=== PATIENT | male | born 1935 | race Caucasian/White ===

== ENCOUNTER 2016-05-31 06:35 | Inpatient (IN) | payer OTHER ==
[2016-05-31 07:18] LABS: MANUAL DIFF NEEDED? NO
[2016-05-31 07:26] LABS: URINE MICRO REVIEW NEEDED? NO; URINE SOURCE VOIDED
[2016-05-31 07:27] LABS: BASO% 0.3 % (0.0-0.8); EOS# 0.45 X1000 (0.0-0.7); EOS% 5.1 % (0.0-10.0); HEMATOCRIT 39.3 % (42.0-52.0); HEMOGLOBIN 13.4 g/dL (14.0-18.0); IMM GRAN# 0.12 X1000 (0.0-0.04); IMM GRAN% 1.3 % (0.0-0.5); LYMPH% 6.7 % (20.5-51.1); MCH 31.5 PG (27-31); MCHC 34.1 g/dL (33-37); MCV 92.3 FL (81-99); MONO# 1.27 X1000 (0.11-0.59); MONO% 14.3 % (1.7-9.3); MPV 9.8 FL (7.4-10.4); NEUT% 72.3 % (42.2-75.2); PLT 282 X1000 (130-400); RBC 4.26 XMIL (4.7-6.1)
[2016-05-31 07:32] LABS: UR EPITHELIAL CELLS <10 /HPF (<10); URINE BACTERIA NEGATIVE /HPF; URINE RBC TNTC /HPF (<10); URINE WBC <10 /HPF (<10)
[2016-05-31 07:43] LABS: BILIRUBIN URINE SMALL (NEGATIVE); BLOOD URINE MODERATE (NEGATIVE); COLOR BROWN; GLUCOSE URINE NEGATIVE (NEGATIVE); LEUKOCYTES URINE NEGATIVE (NEGATIVE); NITRITE URINE POSITIVE (NEGATIVE); PROTEIN URINE TRACE mg/dL (NEGATIVE); SP GRAVITY URINE 1.016; TURBIDITY URINE HAZY (CLEAR); UROBILINOGEN URINE 3 mg/dL (NORMAL)
[2016-05-31 07:54] LABS: ALBUMIN 3.3 g/dL (3.5-5.0); CALCIUM 9.3 mg/dL (8.8-10.2); POTASSIUM 3.7 mmol/L (3.5-5.1); TOTAL BILIRUBIN 0.6 mg/dL (0.20-1.00); TOTAL PROTEIN 6.5 g/dL (6.3-8.3)
[2016-05-31] MEDS ORDERED: MORPHINE IV PRN (09:15)
[2016-05-31] MEDS ORDERED: TYLENOL PO PRN (09:15)
[2016-05-31] MEDS ORDERED: ZOFRAN IV PRN (09:15)
[2016-05-31] MEDS ORDERED: LEVAQUIN 500 MG/D5W 100 ML IV SCH (10:00)
[2016-05-31] MEDS: NS 1,000 ML IV SCH (10:10)
[2016-05-31 10:28] LABS: AMYLASE 24 U/L (20-200); LIPASE 28 U/L (13-60)
--- NOTE | 2016-05-31 11:58 | HISTORY AND PHYSICAL ---
PRIMARY CARE PHYSICIAN: Dr. Rodney Barriga. CHIEF COMPLAINT: Intractable nausea, intractable abdominal pain. HISTORY OF PRESENT ILLNESS: An 81-year-old, white male with past medical history significant for benign prostatic hypertrophy, atrial fibrillation, non allergic rhinitis, osteoarthritis, hypertension, and chronic kidney disease presents for evaluation of above-mentioned symptoms. Current history of present illness began approximately 6 weeks ago. At that time, patient underwent a right total knee arthroplasty. No significant postoperative complications were noted. The patient and his vacationed in [place] last week. On Monday, patient states he ate an egg sandwich and soon thereafter developed nausea. Over the course of the next several days, patient developed fever, urinary retention, and constipation. Abdominal discomfort soon followed. The patient took a Pyridium with some improvement. The patient and his traveled home and yesterday was seen by Dr. Trevino. The patient was diagnosed with prostatitis. He was started on ciprofloxacin therapy. Overnight, patient's overall condition deteriorated. The patient complained of nausea, vomiting, and progressive abdominal discomfort. He noted chills, but no fevers. The patient's noted some alteration of his mental status. Because of his progressive symptoms, patient contacted me and patient was referred to the emergency department immediately. Upon arrival, laboratory data was drawn. Patient was noted to have residual urinary tract infection. He was also noted to have acute on chronic kidney dysfunction. The patient will be admitted to the hospital for full evaluation and management of presumed prostatitis with associated urinary retention and acute on chronic kidney disease. PAST MEDICAL HISTORY: 1. History of prostatitis in early . 2. Benign prostatic hypertrophy. 3. Atrial fibrillation. 4. Non allergic rhinitis. 5. Osteoarthritis. 6. Hypertension. 7. Chronic kidney disease with baseline creatinine of 1.5. 8. History of bilateral rotator cuff repairs. CURRENT MEDICATIONS: 1. Cialis 5 mg daily. 2. Toprol-XL 25 mg daily. 3. Xarelto 20 mg every morning. 4. Aspirin 81 mg daily. 5. Hyzaar 100/25 1/2 tablet daily. 6. Co-Q10 100 mg daily. ALLERGIES: Patient answered no known drug allergies. SOCIAL HISTORY: Patient is a retired orthopedic surgeon. He exercises routinely. He smoked less than 1 pack per day for 30 years. He stopped in 1982. He drinks approximately 1-2 glasses of wine per day. He denies illicit drug use. FAMILY HISTORY: Patient's mother passed at age 60 secondary to complications of ALS. Patient's father passed at age 87 secondary to complications of urinary sepsis. He had a history of Alzheimer's dementia. REVIEW OF SYSTEMS: A 12 point review of systems was performed. Pertinent positives and negatives noted in history of present illness. PHYSICAL EXAMINATION: VITAL SIGNS: Temperature 97.2 degrees, heart rate 83, respirations 16, blood pressure 131/79. GENERAL: Well nourished well developed, no acute distress. HEENT: Normocephalic, atraumatic. Pupils equal, round, reactive to light. Extraocular muscles intact. Sclerae anicteric. [place] conjunctivae. Oral and nasopharynx clear without exudate. NECK: Supple. No lymphadenopathy. No thyromegaly. No bruits auscultated. CARDIOVASCULAR: Irregularly irregular. No significant murmurs, rubs, or gallops. PULMONARY: Clear to auscultation bilaterally. ABDOMEN: Diffusely tender in the right lower quadrant, suprapubic, and left lower quadrant. Guarding was present, but no rebound was identified. Decreased bowel sounds. EXTREMITIES: Moves all extremities well. No significant clubbing, cyanosis, or edema. NEUROLOGIC: Cranial nerves 2 through 12 grossly intact. Motor and sensory grossly intact. PSYCHOLOGIC: Examination is appropriate. LABORATORY DATA: White blood cell count 8.91, hemoglobin 13.4, hematocrit 39.3, platelet counts 282,000. Sodium 134, potassium 3.7, chloride 94, bicarb 22, BUN 31, creatinine 1.8, glucose 113, calcium 9.3, total bilirubin 0.60, total protein 6.5, albumin 3.3, alkaline phosphatase 195, AST 21, ALT 26. Urinalysis reveals trace protein, moderate blood, positive nitrite, negative leukocytes. CT scan of the abdomen and pelvis is pending. ASSESSMENT AND PLAN: 81-year-old white male with a past medical history as noted presents for evaluation of intractable abdominal pain, nausea, and vomiting. The patient was diagnosed with prostatitis yesterday. He appears to have a partially treated urinary tract infection/prostatitis. In addition, patient's postvoid residual was greater than 700 favoring the diagnosis of acute urinary retention in the setting of a prostatitis. Additional symptoms include constipation as well as an atypical abdominal examination. Patient was admitted to the hospital for full evaluation and management of each of these conditions. 1. Admit to [address] [place] [address]. 2. Acute prostatitis - I suspect this is the etiology of his overall symptoms. We will transition patient to IV Levaquin therapy. We will send patient's urine and blood for culture. We will start Flomax twice daily. We will treat patient's urinary retention as described below. 3. Urinary retention - as above, patient's postvoid residual was greater than 700. We will place a Fisher catheter. As above, we will start Flomax therapy. We will consult Dr. Trevino. I suspect this is an acute episode of urinary retention secondary to prostatitis in the setting of benign prostatic hypertrophy. We will need to determine if further intervention is warranted after his prostatitis has resolved. 4. Constipation - this also is exacerbating his condition. We will check a CT scan with oral contrast. We will start patient on MiraLAX therapy. Again this will be followed. 5. Abdominal discomfort - patient's examination is abnormal. I suspect this is secondary to his urinary retention and prostatitis. I would, however, like to rule out additional abdominal pathology. We will refer patient for a CT scan of the abdomen and pelvis. We will use only oral contrast in the setting of his acute on chronic kidney disease. We will follow this as well. 6. Acute on chronic renal failure - patient's baseline creatinine is 1.3. Creatinine today is up to 1.8. We will start patient on IV hydration. We will treat patient's urinary symptoms as noted. 7. Atrial fibrillation - we will continue Toprol-XL. We will hold Xarelto for now however we will re-initiate therapy once abdomen is deemed nonsurgical. We will follow this as well. 8. Fluid, electrolyte, nutrition. We will monitor electrolytes. Normal saline at 75 mL an hour. NPO for now. 9. Prophylaxis. Will resume Xarelto as described above.
--- NOTE | 2016-05-31 13:15 | Diag Imaging Result Document ---
PROCEDURE NAME: CT ABD/PELVIS ORAL CONTR ONLY - 05/31/2016 CT ABDOMEN AND PELVIS WITH ORAL CONTRAST ONLY: FINDINGS: Normal spleen and adrenal glands. No inflammation about the pancreas or gallbladder. No focal hepatic abnormality identified on these noncontrasted images. There are multiple bilateral nonobstructing renal stones in addition to bilateral renal cysts. The largest cyst on the left measures 4.6 cm. The largest cyst on the right measures 5.1 cm. The renal stones range in size from 2 mm to 6 mm. No ureteral stones. Mild perinephric inflammation about each kidney. Moderate atherosclerosis. No aneurysmal dilatation to the aorta. No bowel obstruction. There are many scattered diverticula. The prostate measures 5.6 cm in transverse dimension. There is a Fisher catheter within the urinary bladder. Prominent degenerative changes in the mid and lower lumbar spine. No compressed vertebra. IMPRESSION: 1. Bilateral nonobstructing renal stones with scattered renal cysts. No ureteral stones. 2. I believe there is mild fatty infiltration of liver. 3. Diverticulosis. 4. Prominent prostate. 5. Prominent degenerative spine changes. A preliminary report was given at 12:56 p.m.
[2016-05-31] MEDS: TOPROL XL PO SCH (14:21)
[2016-05-31] MEDS: FLOMAX PO SCH ×2 (14:21→20:02)
[2016-05-31] MEDS: PATIENT'S OWN MED PO SCH (14:22)
[2016-05-31] MEDS: ASPIRIN EC PO SCH (14:22)
[2016-05-31] MEDS: MIRALAX PO SCH (14:23)
[2016-06-01] MEDS: NS 1,000 ML IV SCH (01:27)
[2016-06-01 06:31] LABS: MANUAL DIFF NEEDED? NO
[2016-06-01 06:46] LABS: BASO% 0.5 % (0.0-0.8); EOS# 0.71 X1000 (0.0-0.7); EOS% 12.4 % (0.0-10.0); HEMATOCRIT 37.5 % (42.0-52.0); HEMOGLOBIN 12.3 g/dL (14.0-18.0); IMM GRAN# 0.13 X1000 (0.0-0.04); IMM GRAN% 2.3 % (0.0-0.5); LYMPH# 0.87 X1000 (1.2-3.4); LYMPH% 15.2 % (20.5-51.1); MCH 30.9 PG (27-31); MCHC 32.8 g/dL (33-37); MCV 94.2 FL (81-99); MONO# 0.73 X1000 (0.11-0.59); MONO% 12.8 % (1.7-9.3); MPV 9.5 FL (7.4-10.4); NEUT% 56.8 % (42.2-75.2); PLT 238 X1000 (130-400); RBC 3.98 XMIL (4.7-6.1)
[2016-06-01 07:00] LABS: ALBUMIN 2.7 g/dL (3.5-5.0); CALCIUM 8.5 mg/dL (8.8-10.2); POTASSIUM 4.1 mmol/L (3.5-5.1); TOTAL BILIRUBIN 0.35 mg/dL (0.20-1.00); TOTAL PROTEIN 5.5 g/dL (6.3-8.3)
[2016-06-01 07:21] VITALS: BP 125/74
[2016-06-01] MEDS: MIRALAX PO SCH ×2 (09:29→09:31)
[2016-06-01] MEDS: FLOMAX PO SCH (09:30)
[2016-06-01] MEDS: TOPROL XL PO SCH (09:30)
[2016-06-01] MEDS: ASPIRIN EC PO SCH (09:30)
[2016-06-01] MEDS: PATIENT'S OWN MED PO SCH (09:31)
--- NOTE | 2016-06-02 05:51 | DISCHARGE SUMMARY ---
ADMISSION DATE: 05/31/2016 DISCHARGE DATE: 06/01/2016 ADMISSION DIAGNOSES: 1. Intractable nausea. 2. Intractable abdominal pain. DISCHARGE DIAGNOSES: 1. Acute prostatitis, treated. 2. Urinary retention secondary to acute prostatitis in the setting of benign prostatic hypertrophy. 3. Constipation, improved. 4. Abdominal discomfort, resolved. 5. Acute on chronic renal failure, improved CONSULTATION: Dr. Trevino with Urology was consulted for further evaluation and management of urinary retention. PROCEDURE: A CT scan of the abdomen and pelvis was performed on 05/31/2016 which revealed bilateral nonobstructing renal stones with scattered renal cysts. No ureteral stones. Mild fatty infiltration of the liver. Diverticulosis. Prominent prostate. Prominent degenerative spine changes. HISTORY AND PHYSICAL EXAMINATION: See admit note. PHYSICAL EXAMINATION PRIOR TO DISCHARGE: Vital Signs: Temperature 98.3 degrees, heart rate 87, respirations 16, blood pressure is 125/74. General: Well nourished, well developed in no acute distress. Cardiovascular: Irregularly irregular. No significant murmurs, rubs or gallops. Pulmonary: Clear to auscultation bilaterally. Abdomen: Soft, nontender, and nondistended. Positive bowel sounds. Extremities: Moves all extremities well. No significant clubbing or cyanosis. Patient has 2+ lower extremity edema bilaterally. Dermatologic: Reveals no evidence of rash. LABORATORY DATA: White blood cell count 5.72, hemoglobin 12.3, hematocrit 37.5, platelet count 238,000. Sodium 140, potassium 4.1, chloride 102, bicarb 25, BUN 24, creatinine 1.3, glucose 134, calcium 8.5, total bilirubin 0.35, total protein 5.5, albumin 2.7, alkaline phosphatase 143, AST 24, and ALT 21. HOSPITAL COURSE: Patient was admitted as per history and physical exam. HOSPITAL COURSE PER CONDITION IS FOLLOWS: 1. Acute prostatitis-Upon admission, patient was being treated for acute prostatitis. Repeat urinalysis and urine culture was drawn. As urinalysis suggested partial treatment, patient will be continued on levofloxacin therapy for additional 10 days. We will follow up on culture data. 2. Urinary retention-upon admission, patient was noted to have significant urinary retention. A catheter was placed and 1700 mL of urine was removed. Flomax therapy was initiated twice daily. Dr. Treivno was consulted. The patient will be discharged home with a Fisher catheter in place. We will plan to attempt a voiding trial next Monday with Dr. Trevino. 3. Constipation-Patient will be discharged home on MiraLAX to be used daily. This will be followed. 4. Abdominal discomfort-The patient was noted to have considerable abdominal discomfort upon admission. This ultimately was secondary to his urinary retention. With Fisher catheter placement, his symptoms improved. 5. Acute on chronic renal failure-patient's creatinine upon admission was 1.8. With hydration, this returned to baseline of 1.3. 6. Atrial fibrillation-patient was continued on Toprol-XL while hospitalized. On the day of discharge, patient's Xarelto was resumed. DISCHARGE CONDITION: Good. DISPOSITION: Discharge to home. MEDICATIONS: 1. Acetaminophen 650 mg every 4 hours as needed. 2. Levofloxacin 500 mg daily for 10 days. 3. Losartan/hydrochlorothiazide 100/25 1/2 tablet daily. 4. Polyethylene glycol 17 g in 8 ounces of juice daily as needed for constipation. 5. Tamsulosin 0.4 mg twice daily. 6. Aspirin 81 mg daily. 7. Fluticasone nasal spray daily. 8. Brio inhalation daily as needed. 9. Metoprolol ER 25 mg daily. 10. Xarelto 20 mg daily. 11. Cialis 5 mg daily. FOLLOWUP: The patient to follow with me in approximately 1-2 weeks. The patient to follow up with Dr. Trevino as arranged.
--- NOTE | 2016-06-05 22:53 | CONSULTATION ---
DATE OF CONSULTATION: 05/31/2016 CONSULTING PHYSICIAN: Dr. Rodney Barriga. CONSULTATION FOR: Acute urinary retention. Nausea vomiting. History BPH. 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 He was contacted by me while out of the country secondary to worsening of lower urinary tract symptoms consistent with prostatitis. He waited until coming back to the [place] which was several days after being contacted by me and was initiated on ciprofloxacin which he had at home. I have also called in Flomax. He reports feeling worse and he was seen by me on 05/30/2016. At that time we elected to continue with medical management increasing the Flomax. He reports having felt worse and contacted Dr. Barriga who had admitted him. His creatinine on the time of admission was 1.8. Upon review of records it was 1.7 in May 2015, it was 1.1 in May 2014. His white cell count at the time of admission was 9. He has had a history of elevated PSA all the way up to 11. That was attributed to prostatitis and repeat PSA was 5.3 followed by PSA of 5.51 in January 2016. He has used Flomax as well as a Cialis daily in the past. Upon further history he reports he had not used Flomax as prescribed on daily basis. He reportedly had significantly elevated postvoid residual with approximately 800 mL and Fisher catheter was placed at the time of admission. He denies gross hematuria, flank pain, fevers or chills currently. PAST MEDICAL HISTORY: 1. BPH . 2. Chronic prostatitis. 3. Atrial fibrillation. 4. Hypertension. Osteoarthritis. PAST SURGICAL HISTORY: Rotator cuff repair, appendectomy, percutaneous coronary intervention and cataract excision. ALLERGIES: No known drug allergies. MEDICATIONS: Toprol, Xarelto, aspirin, Hyzaar, Cialis, CoQ10. SOCIAL HISTORY: He is a retired physician, he is a former smoker, occasional alcohol, no illicit drugs. FAMILY HISTORY: Negative for malignancies. REVIEW OF SYSTEMS: Reviewed and 12 systems negative with exception the HPI. PHYSICAL EXAMINATION: Vital signs: T 97.8, P 74, BP 93/56. General: Pleasant male no acute distress. HEENT: Normocephalic, atraumatic. Cardiovascular: Regular rate. Pulmonary: Bilateral breath sounds. Abdomen: Nontender, nondistended. : Normal phallus, normal meatus. Fisher catheter place draining straw-colored urine. Rectal: Digital rectal examination deferred as 1 was done on 05/30/2016. Lymphatic: No groin lymphadenopathy. DERMATOLOGIC: No obvious skin rashes .Neurologic: Alert and oriented x3. Psychiatric: Appropriate mood and affect. PERTINENT LABS: Per HPI. PERTINENT IMAGES: He did have a CT abdomen and pelvis ordered on 05/31/2016 which revealed bilateral renal stones, bilateral renal cysts, prominent prostate with respect to system. ASSESSMENT/PLAN: 81-year-old male with long-standing benign prostatic hypertrophy who has chronic prostatitis and recently had acute exacerbation. This is likely the source of his urinary retention. I have had extensive conversation with the patient regarding medical and surgical management of benign prostatic hypertrophy, chronic prostatitis and now retention. He feels strongly about being on Flomax 0.4 mg twice a day as has he has not done that routinely in the past. We discussed that we may add finasteride to his regimen. We also discussed that if he does not pass voiding trial or continues to have prostatitis frequently we will may need to consider transurethral resection of the prostate versus simple prostatectomy. I have answered his questions to his satisfaction. PLAN: 1. Agree with discharging him in the future with Fisher catheter. I have discussed with the patient intermittent self-catheterization and he declined. 2. Flomax 0.4 mg b.i.d. 3. I will see him in 6-7 days for voiding trial. Thank you for consultation.
== END 2016-06-01 10:42 | disposition home or self-care (01) | DRG 683 ==
LOC: ED 06:35 → EDIPHOLD 10:56 → 4N 16:07
PROVIDERS: ADMIT Internal Medicine; ATTEND Internal Medicine
DX: N17.9 Acute kidney failure, unspecified (principal); N41.0 Acute prostatitis; N40.1 Benign prostatic hyperplasia with lower urinary tract symptoms; R33.8 Other retention of urine; I48.91 Unspecified atrial fibrillation; I12.9 Hypertensive chronic kidney disease with stage 1 through stage 4 chronic kidney disease, or unspecified chronic kidney disease; N18.9 Chronic kidney disease, unspecified; J31.0 Chronic rhinitis; K59.00 Constipation, unspecified; M19.90 Unspecified osteoarthritis, unspecified site; Z79.899 Other long term (current) drug therapy; Z79.02 Long term (current) use of antithrombotics/antiplatelets; Z87.891 Personal history of nicotine dependence; Z79.82 Long term (current) use of aspirin
CPT/HCPCS: 51702; 51798; 74176; 80053; 81001; 82150; 83690; 85025; 87040; 87088; 94761; 94799; 96365; J7030

== ENCOUNTER 2018-07-22 19:39 | Inpatient (IN) ==
[2018-07-22] MEDS ORDERED: SODIUM CHLORIDE 0.9% INJ ONE (19:52)
[2018-07-22] MEDS ORDERED: PROTONIX IV ONE (19:52)
[2018-07-22] MEDS ORDERED: NS 1,000 ML IV ONE ×2 (19:58→21:38)
[2018-07-22 20:42] LABS: BASO# 0.01 X1000 (0.0-0.2); BASO% 0.1 % (0.0-0.8); EOS% 0.7 % (0.0-10.0); HEMATOCRIT 41.5 % (42.0-52.0); HEMOGLOBIN 13.9 g/dL (14.0-18.0); IMM GRAN# 0.06 X1000 (0.0-0.04); IMM GRAN% 0.4 % (0.0-0.5); LYMPH# 0.48 X1000 (1.2-3.4); LYMPH% 3.2 % (20.5-51.1); MCH 28.4 PG (27-31); MCHC 33.5 g/dL (33-37); MCV 84.9 FL (81-99); MONO# 1.13 X1000 (0.11-0.59); MONO% 7.5 % (1.7-9.3); MPV 10.6 FL (7.4-10.4); NEUT# 13.26 X1000 (1.4-6.5); NEUT% 88.1 % (42.2-75.2); PLT 182 X1000 (130-400); RBC 4.89 XMIL (4.7-6.1); RDW 15.9 % (11.5-14.5); WBC 15.04 X1000 (4.8-10.8)
[2018-07-22 20:46] LABS: INR 1.55; PROTIME 19.7 Seconds (11.0-16.0)
[2018-07-22 20:47] LABS: PTT 35.1 Seconds (22.3-41.8)
[2018-07-22 21:08] LABS: ALB/GLOB RATIO 1.2; ALBUMIN 3.3 g/dL (3.5-5.0); CALCIUM 8.4 mg/dL (8.8-10.2); CREATININE 1.6 mg/dL (0.7-1.2); POTASSIUM 3.5 mmol/L (3.5-5.1); TOTAL BILIRUBIN 1.34 mg/dL (0.20-1.00); TOTAL PROTEIN 6.1 g/dL (6.3-8.3)
[2018-07-22] MEDS ORDERED: LEVOPHED 8 MG in D5 1/2 NS 250 ML IV SCH (21:45)
[2018-07-22] MEDS ORDERED: LEVAQUIN 500 MG/D5W 500 MG/100 ML IVPB IV ONE (23:24)
--- NOTE | 2018-07-22 23:42 | PROVIDER DOCUMENTATION ---
This chart was entered by Sarah Almendarez Scribe, acting as scribe for John Levi MD. HPI-Abdominal Pain/GI Problem - General Chief Complaint: Vomiting Blood Stated Complaint: VOMITING BLOOD, BLOOD PRESSURE IS LOW Time Seen by Provider: 07/22/18 19:51 Source: patient Allergies/Adverse Reactions: Patient Allergies Allergy/AdvReac Type Severity Reaction Status Date / Time No Known Allergies Allergy Verified 07/22/18 19:51 Home Medications: Home Medication List Medication Instructions Recorded Confirmed Last Taken Type Aspirin [Aspirin EC] 81 mg PO DAILY 02/25/13 05/31/16 05/30/16 06:00 History Tadalafil [Cialis] 5 mg PO DAILY 02/25/13 05/31/16 05/31/16 06:00 History Metoprolol Succinate E.r. [Toprol 1 tab PO DAILY 06/01/15 05/31/16 05/30/16 06:00 History Xl] Fluticasone Propionate [Flonase 1 ml NS DAILY 04/11/16 05/31/16 05/31/16 06:00 History Allergy Relief] Fluticasone/Vilanterol [Breo 1 each IH DAILY 04/11/16 05/31/16 05/31/16 06:00 History Ellipta 100-25 Mcg INH] Rivaroxaban [Xarelto] 20 mg PO DAILY 05/31/16 05/31/16 05/30/16 06:00 History Acetaminophen [Tylenol] 650 mg PO Q4H PRN PRN #0 tablet 06/01/16 Unknown Rx Levofloxacin [Levaquin] 500 mg PO DAILY #10 tablet 06/01/16 Unknown Rx Losartan/Hydrochlorothiazide 0.5 tab PO DAILY #0 06/01/16 05/31/16 05/31/16 06:00 Rx [Hyzaar 100-25 Tablet] Polyethylene Glycol 3350 [Miralax] 17 gm PO DAILY PRN #527 gm 06/01/16 Unknown Rx Tamsulosin [Flomax] 0.4 mg PO BID #60 capsule 06/01/16 Unknown Rx - History of Present Illness-ABD Nature of Presenting Problems: Pt is 83/M presenting to ED after having episodes of spitting up blood that started last night. He sts that last night it was dark and he thought that it was chocolate, but that it has continued today. pt c/o some blood from nose as well and has been nauseated. hx of polyps in nose, DVTS. Takes xarelto and aspirin daily. Pt adds that he thinks his sinuses have been bleeding causing his blood clots that he spat up last night. Pain Radiation: reports: no radiation Quality of Pain: reports: none Severity in ED: reports: mild Onset/Duration: reports: last night Timing: reports: still present Activities at Onset: reports: none Exposure to sick contacts?: No Modifying Factors: improves with: nothing Associated Symptoms: reports: nausea, vomiting. denies: chest pain, cough, dizziness, syncope Last BM: unsure Emesis Description: reports: other (dark) Bruising or Bleeding Gums?: No Similar Symptoms Previously?: No Recently seen or treated by another doctor?: No Review of Systems - Adult - REVIEW OF SYSTEMS - ADULT Constitutional: reports: no symptoms reported. denies: chills, fever Eyes: reports: no symptoms reported Ears, Nose, Mouth & Throat: reports: no symptoms reported Cardiovascular: reports: no symptoms reported. denies: chest pain Respiratory: reports: no symptoms reported Gastrointestinal: reports: nausea, vomiting. denies: abdominal pain, diarrhea, rectal bleeding Genitourinary: reports: no symptoms reported Musculoskeletal: reports: no symptoms reported Integumentary: reports: no symptoms reported Neurological: reports: no symptoms reported. denies: dizziness/vertigo, headache/migraines Psychiatric: reports: no symptoms reported Endocrine: reports: no symptoms reported Hematologic/Lymphatic: reports: no symptoms reported Allergic/Immunologic: reports: no symptoms reported All Other Systems: Reviewed and Negative Past History - Adult - PAST MEDICAL HISTORY-ADULT Review of Records: reports: Old Records Reviewed, Nursing Assessment Review, Medications Reviewed, Social history reviewed & non-contributory. Major Childhood Illnesses: reports: denies history Cardiovascular: reports: denies history Respiratory: reports: denies history Gastrointestinal: reports: denies history Musculoskeletal: reports: denies history Neurological: reports: denies history Psychiatric: reports: denies history Endocrine/Immune: reports: denies history Other Conditions: reports: denies history, other (skin cancer) - SOCIAL HISTORY Smoking: quit greater than 1 year Alcohol Use Frequency: every day (daily glass of wine) Number of drinks per typical drinking period:: 1 drink Living Situation: family Physical Exam-General - PHYSICAL EXAM-ADULT Initial Vital Signs Reviewed: Yes - CONSTITUTIONAL General Appearance: appears well, alert, no apparent distress - EYES Eyes: PERRL/EOMI, pink conjunctivae - HEAD, EARS, NOSE, MOUTH & THROAT HENMT: normocephalic/atraumatic, normal ENT inspection (no blood present in nasal cavity). negative: moist mucous membranes (dry) - NECK Neck: non-tender, full range of motion, supple, normal inspection - RESPIRATORY Respiratory: lungs clear - CARDIOVASCULAR Cardiovascular: regular rate, rhythm - GASTROINTESTINAL (ABDOMEN) Abdominal Exam: normal bowel sounds, non tender, soft - MUSCULOSKELETAL Back Exam: normal inspection Extremity: normal range of motion, non-tender, normal gait, normal inspection - SKIN Integumentary: normal color, warm/dry - NEUROLOGIC Neurologic: grossly normal - PSYCHIATRIC Psych/Mental Status: normal mood/affect, normal thought content, normal thought process, oriented x 3 Progress - PLAN OF CARE/RESULTS Progress/Plan/Lab Results: Vital Signs - 8 hr 07/22/18 19:44 Temperature 98.3 F Pulse Rate 92 H Respiratory Rate 20 Blood Pressure 95/59 O2 Sat by Pulse Oximetry 93 L Orders Category Date Time Status CBC WITH ELECTRONIC DIFF [HEME] Stat Lab 07/22/18 19:51 Uncollected COMPREHENSIVE METABOLIC PANEL [CHEM] Stat Lab 07/22/18 19:52 Uncollected OCCULT BLOOD SCREENING [STOOL] Stat Lab 07/22/18 19:58 Uncollected PROTIME WITH INR [COAG] Stat Lab 07/22/18 19:52 Uncollected PTT [COAG] Stat Lab 07/22/18 19:52 Uncollected TYPE & SCREEN [BBK] Stat Lab 07/22/18 19:52 Uncollected 0.9% Sodium Chloride Inj [Ns] 1,000 ml Med 07/22/18 19:58 Active IV 999 mls/hr Pantoprazole [Protonix] Med 07/22/18 19:52 Discontinued 40 mg IV NOW ONE Sodium Chloride 0.9% Med 07/22/18 19:52 Discontinued 10 ml INJ NOW ONE Result Diagrams: 07/22/18 20:10 07/22/18 20:10 - CT/MRI 1 CT Study: Abdomen, Pelvis Impression: Abnormal (No urinary calculi or hydronephrosis. Right lower lobe likely pneumonia) - CONSULTS/PCP/HOSPITALIST Notification #1 *Consult/PCP/Hospitalist*: Dr Prater Time Discussed: 23:40 Consult Disposition: Will see in ED, Admit Departure - Departure Date of Disposition Decision: 07/22/18 Time of Disposition Decision: 23:39 DIAGNOSIS: Pneumonia, Hypotension, Renal insufficiency Disposition: ADMITTED INPATIENT 09 Certified Medical Emergency: Emergent Condition: Fair Referrals and Follow-Ups: Rodney Barriga MD [Primary Care Provider] - - Critical Care Note This patient required my direct & personal management of CC.: No Attestation - Physician/ ARINA Attestation Patient care was provided by Advanced Practice Provider:: No The physician spent face to face time with patient:: Yes Advanced Practice Provider documentation review:: Supervising physician onsite and consulted in the evaluation and care of this patient. The physician did have a face to face encounter with the patient. This chart was documented by the indicated scribe, (Sarah Almendarez, Scribe) and accurately reflects the services I performed and decisions made by me, John Levi MD, as attested by the provider's signature.
[2018-07-23 00:05] LABS: URINE SOURCE CLEAN CATCH
[2018-07-23 00:15] LABS: BILIRUBIN URINE NEGATIVE (NEGATIVE); BLOOD URINE TRACE (NEGATIVE); COLOR ORANGE; GLUCOSE URINE NEGATIVE (NEGATIVE); KETONE URINE 10 mg/dL (NEGATIVE); LEUKOCYTES URINE NEGATIVE (NEGATIVE); NITRITE URINE NEGATIVE (NEGATIVE); PH URINE 5.5; PROTEIN URINE TRACE mg/dL (NEGATIVE); TURBIDITY URINE CLEAR (CLEAR); UROBILINOGEN URINE 2 mg/dL (NORMAL)
[2018-07-23 00:16] LABS: UR EPITHELIAL CELLS <10 /HPF (<10); URINE BACTERIA NEGATIVE /HPF; URINE RBC <10 /HPF (<10); URINE WBC <10 /HPF (<10)
[2018-07-23] MEDS ORDERED: NS NEB INH SCH (00:45)
[2018-07-23] MEDS: ZOSYN 3.375 GM in NS 50 ML IV SCH ×4 (03:25→20:15)
[2018-07-23] MEDS: ZYVOX 600 MG/D5W 600 MG/300 ML IVPB IV SCH ×2 (03:26→15:38)
[2018-07-23] MEDS: ATROVENT NEB INH SCH ×6 (03:29→23:30)
[2018-07-23] MEDS: XOPENEX NEB INH SCH ×6 (03:29→23:32)
--- NOTE | 2018-07-23 04:02 | HISTORY AND PHYSICAL ---
CHIEF COMPLAINT: Epistaxis, shortness of breath. HISTORY OF PRESENT ILLNESS: The patient is an 83-year-old male with a past medical history of nasal polyps with recurrent bleeding, allergic rhinitis, atrial fibrillation on Xarelto, chronic kidney disease and BPH, who came to the emergency department with a chief complaint of spitting up some blood since yesterday. As per the patient also he has been having nose bleed due to polyps, which apparently has been happening before. He also has been nauseated and coughing since yesterday, he is short of breath as well. Nothing comes up when he coughs coma. He has been on chronic anticoagulation due to atrial fibrillation. He has been taking Xarelto, and aspirin as well. In the emergency department a chest x-ray was done and showed a right lower lung infiltrate. His blood pressure was low and the leukocyte count was high. He was placed on vasopressors and he will be admitted for pneumonia and septic shock. He will be transferred to the ICU. We will monitor this patient closely. PHYSICAL EXAMINATION: VITAL SIGNS: Temperature 98.3 degrees, pulse 92, respiratory rate 20, blood pressure 95/59, oxygen saturation 93 on room air, but when the patient talks it dropped really fast to the low 80s. HEENT: Head is normocephalic and atraumatic. PERRLA. NECK: Supple. No JVD. Central trachea. CHEST: Decreased breath sounds globally with expiratory wheezing. Rhonchi at the level of the right base. ABDOMEN: Soft, nontender, and nondistended. No hepatosplenomegaly. EXTREMITIES: Some edema. No clubbing. No cyanosis. NEUROLOGICAL: This patient is completely alert and oriented x3. No focal neurological deficits. LABORATORY DATA: WBC 15, hemoglobin 13.9, hematocrit 41.5, platelets 182,000. Sodium 137, potassium 3.5, chloride 100, bicarbonate 23, BUN 30, creatinine 1.6, glucose 133, calcium 8.4, AST 46, ALT 28, alkaline phosphatase 83, albumin 3.3. REVIEW OF SYSTEMS: Positive for fatigue and nausea. The rest of the 14 points of review of systems were reviewed and all of them negative except as per history of present illness. PAST MEDICAL HISTORY: Chronic kidney disease, atrial fibrillation on chronic anticoagulation, allergic rhinitis, nasal polyps with recurrent nasal bleed, BPH. PAST FAMILY HISTORY: Positive for cancer in his daughters including breast cancer, thyroid cancer and Hodgkin lymphoma. He has a mother that and also a son that with ALS. SOCIAL HISTORY: History he used to smoke but he stop smoking in 1982, he smoked for 20 years, half a pack a day. Alcohol occasionally. No drugs. He is retired. He used to be an of orthopedic surgeon. ALLERGIES: No known allergies. PAST SURGICAL HISTORY: Left wrist surgery due to osteoarthritis, bilateral knee replacement, right rotator cuff repair, appendectomy, and kidney stone removal. ASSESSMENT AND PLAN: 1. Septic shock. This patient will be transferred to the Intensive Care Unit. We will continue with gentle intravenous fluids and vasopressors. This patient has been placed on Zosyn and Zyvox. We will continue to monitor this patient closely. Telemetry. 2. Right lower lobe pneumonia. Likely the cause of the sepsis. We will continue with antibiotics, breathing treatment, and oxygen supplementation. 3. Acute hypoxemic respiratory failure. This patient's oxygen saturation drops when he talks to the low 80s. At the moment of my physical examination he was on a Ventimask, but is not documented on the vital signs. We will continue to monitor and treating the pneumonia. 4. Likely nasal bleeding. This patient has a history of polyps. His hemoglobin is stable at 13.9, but after getting fluids likely this number is going to be lower than that. I will continue with his anticoagulation, he is on active atrial fibrillation. He usually takes his medications during the night. 5. Atrial fibrillation. Rate controlled. I will continue with his Toprol-XL and monitor. 6. History of benign prostatic hypertrophy. This patient takes Cialis 5 mg daily. I will hold it for now but probably can be restarted tomorrow. 7. Chronic kidney disease. This is his baseline. At home he takes Lasix 40 mg p.o. daily, but I will hold it for now due to his septic shock. Once the septic shock is resolved likely we can restart the treatment. 8. Hyperglycemia. No history of diabetes on this patient. I will check a hemoglobin A1c. cc: Qamar Shelby MD
[2018-07-23 04:24] LABS: BASO# 0.01 X1000 (0.0-0.2); BASO% 0.1 % (0.0-0.8); EOS# 0.04 X1000 (0.0-0.7); EOS% 0.3 % (0.0-10.0); HEMATOCRIT 38.8 % (42.0-52.0); HEMOGLOBIN 12.9 g/dL (14.0-18.0); IMM GRAN# 0.22 X1000 (0.0-0.04); IMM GRAN% 1.4 % (0.0-0.5); LYMPH# 0.49 X1000 (1.2-3.4); LYMPH% 3.1 % (20.5-51.1); MCH 28.6 PG (27-31); MCHC 33.2 g/dL (33-37); MONO# 0.66 X1000 (0.11-0.59); MONO% 4.2 % (1.7-9.3); MPV 10.6 FL (7.4-10.4); NEUT# 14.46 X1000 (1.4-6.5); NEUT% 90.9 % (42.2-75.2); PLT 189 X1000 (130-400); RBC 4.51 XMIL (4.7-6.1); RDW 16.1 % (11.5-14.5); WBC 15.88 X1000 (4.8-10.8)
[2018-07-23 04:37] LABS: HEMOGLOBIN A1C 5.2 % (4.8-6.0)
[2018-07-23 05:09] LABS: ALB/GLOB RATIO 1.3; ALBUMIN 3.1 g/dL (3.5-5.0); CALCIUM 8.2 mg/dL (8.8-10.2); CREATININE 1.6 mg/dL (0.7-1.2); POTASSIUM 3.6 mmol/L (3.5-5.1); TOTAL BILIRUBIN 1.94 mg/dL (0.20-1.00); TOTAL PROTEIN 5.4 g/dL (6.3-8.3)
--- NOTE | 2018-07-23 06:00 | Diag Imaging Result Doc PS360 ---
EXAM: CHEST-1 VIEW HISTORY: cough TECHNIQUE: Chest single view COMPARISON: 01/19/2018 FINDINGS: The lungs are well expanded. The heart is not enlarged. The vessels are moderately distended. There is increased density in the right lung base. No pleural effusions identified. IMPRESSION: Pulmonary edema with a right lower lobe pneumonia. Follow-up PA and lateral recommended. Electronically signed by Mark Salas 07/23/2018 5:58 AM
--- NOTE | 2018-07-23 06:41 | Diag Imaging Result Doc PS360 ---
EXAM: CHEST-PORTABLE HISTORY: Pneumonia TECHNIQUE: Portable chest single view COMPARISON: 07/22/2018 FINDINGS: The lungs are well expanded. No cardiomegaly. Infiltrates in the lower right lung are more prominent than on the prior study. There may be small pleural effusions. IMPRESSION: Mild interval worsening. Electronically signed by Mark Salas 07/23/2018 6:39 AM
--- NOTE | 2018-07-23 07:02 | Diag Imaging Result Doc PS360 ---
EXAM: CT ABDOMEN/PELVIS W/O CONTRAST 07/22/2018 HISTORY: abdo pain TECHNIQUE: This exam was performed using automated exposure control, adjustment of mA or kV according to patient size, and/or use of iterative reconstruction technique. COMMENT: There is alveolar opacification in the posterior right lower lobe, which was not present on 02/03/2017 and most likely represents pneumonia. There is some minimal fibrosis in the left costophrenic sulcus which was present previously. There is a stone in the upper collecting system of the right kidney measuring 5 mm in greatest dimension. This is slightly larger than on the previous examination but was present previously. There are bilateral renal cysts. There is scattered colonic diverticulosis. There is no evidence of acute diverticulitis or appendicitis. There is no evidence of bowel obstruction. There are no apparent gallstones. There are spondylotic changes in the lumbar spine. IMPRESSION: Right lower lobe pneumonia. Right nephrolithiasis. Electronically signed by Anirudh Vargas 07/23/2018 7:00 AM
[2018-07-23] MEDS: PRILOSEC PO SCH (08:49)
[2018-07-23] MEDS: TYLENOL PO PRN (08:49)
[2018-07-23] MEDS: ASPIRIN PO SCH (08:49)
[2018-07-23] MEDS: NS 1,000 ML IV SCH ×2 (08:50→15:07)
[2018-07-23 11:47] LABS: INR 1.58; PROTIME 20.1 Seconds (11.0-16.0)
[2018-07-23] MEDS: TOPROL XL PO SCH (13:28)
[2018-07-23] MEDS ORDERED: SODIUM BICARBONATE 8.4% 150 MEQ in D5W 1,000 ML IV SCH (13:30)
--- NOTE | 2018-07-23 13:51 | PULMONOLOGY CONSULTATION ---
DATE: 07/23/2018 REQUESTING PHYSICIAN: Dr. Rodney Barriga. REASON FOR CONSULTATION: Pneumonia and sepsis. 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 The patient has history of chronic lower extremity edema with varicosity disease and is on chronic anticoagulation for atrial fibrillation and prior pulmonary emboli. The patient was doing well Monday, but on Monday began having some sweats, cough with bloody secretions, and according to a family member, he had an episode of syncope. The patient was brought to the emergency room and underwent a CT scan of the abdomen and pelvis which revealed a right lower lobe pneumonia. White blood count was elevated at 15,000. His blood pressure was low and he has been initiated on Levophed. Maximum temperature in the last 24 hours was 101.8 degrees. Clinically, he is awake, alert, and does report some improvement. PAST MEDICAL HISTORY: 1. Mild asthma/COPD overlap syndrome. 2. Atrial fibrillation. 3. History of pulmonary embolism on 2 separate occasions. 4. Bilateral lower extremity varicosities. 5. Hypertension. 6. Allergic rhinitis. 7. Osteoarthritis. 8. Status post bilateral cataract removal. 9. Left total knee arthroplasty in 2007. 10. History of nephrolithiasis. 11. BPH. 12. Chronic kidney disease. SOCIAL HISTORY: The patient is a retired orthopedic surgeon. Prior tobacco use. Occasional alcohol use. FAMILY HISTORY: Positive for thyroid cancer, breast cancer and lymphoma. His son from ALS. REVIEW OF SYSTEMS: Notable for sweats, lightheadedness, cough with yellow to red sputum. PHYSICAL EXAMINATION: General: Reveals a well-developed, well-nourished male who is awake, alert, and conversant. He remains on Graham-Synephrine. Vital Signs: Blood pressure 89/58, heart rate 85, respiratory rate 17, oxygen saturation 97% on nasal cannula. HEENT: Pupils are equal and reactive. Oropharynx is clear. Neck: Supple. Chest: Reveals rhonchi bilaterally with decreased breath sounds with crackles at the right base. Cardiac: Irregularly irregular. Normal S1, normal S2. Abdomen: Soft with good bowel sounds. Extremities: Reveal trace to 1+ peripheral edema. LABORATORY DATA: INR yesterday was elevated at 1.55. INR today is elevated at 1.58. Sodium 134, potassium 3.4, chloride 99, bicarbonate 23, BUN 28, creatinine 1.6. White blood count 15.6, hemoglobin 12.9, platelet count 189,000. Microbiology: Sputum culture is pending. Blood cultures are pending. Chest x-ray reveals slight worsening at the right base. IMPRESSION: An 83-year-old with chronic obstructive pulmonary disease/asthma, chronic anticoagulation, right lower lobe pneumonia, hemoptysis, shock on low-dose vasopressors. RECOMMENDATION: 1. Continue vasopressors. 2. Hold Xarelto x2 days given hemoptysis and partial anticoagulation with elevation in the INR. 3. Add atypical coverage. 4. Check immunoglobulin levels. 5. Small fluid bolus. 6. Continue ICU monitoring. The patient's prognosis is guarded given his age and shock. cc: Jacob Aguilar MD
[2018-07-23] MEDS ORDERED: XARELTO PO SCH (17:00)
--- NOTE | 2018-07-23 21:29 | PROGRESS NOTE ---
DATE: 07/23/2018 SUBJECTIVE: The patient was admitted overnight with right lower lobe pneumonia and associated sepsis. He was placed on broad-spectrum antibiotics, including Zosyn and Zyvox. Pressor support was initiated. Over the course of the first 12 hours, patient did reasonably well. This morning, upon my arrival, patient was resting in bed. He noted feeling reasonably well. He denied fevers, chills, nausea, vomiting, or chest discomfort at that time. Throughout the course of the day, the patient continued to do well. He was titrated off Levophed. This evening, he tolerated his diet well. His systolic blood pressure remains above 100 off of pressor support. He denies significant shortness of breath at present time. He continues to have cough intermittently productive of a purulent/blood-tinged sputum. OBJECTIVE: Vital Signs: T-max 101.8 degrees, heart rate 85 to 94, respirations 20 to 25, blood pressure. 77/62 to 127/62. General: Well nourished, well developed, no acute distress. Cardiovascular: Irregularly irregular. No significant murmurs, rubs, or gallops. Pulmonary: Crackles at the right base. Adequate air movement. Abdomen: Soft, nontender, nondistended. Positive bowel sounds. Extremities: Moves all extremities well. No significant clubbing or cyanosis. There is 1+ lower extremity edema bilaterally. Dermatologic: Evaluation reveals no evidence of rash. LABORATORY DATA: White blood cell count 15.88, hemoglobin 12.9, hematocrit 38.8, platelet count 189,000. PT 20.1, INR is 1.58. Sodium 138, potassium 3.6, chloride 99, bicarb 23, BUN 28, creatinine 1.6, glucose 116, calcium 8.2, total bilirubin 1.94, total protein 5.4, albumin 3.1, alkaline phosphatase 80, AST 30, ALT 44. ASSESSMENT AND PLAN: 1. Right lower lobe pneumonia and associated septic shock. The patient is currently being treated with broad-spectrum antibiotics, including Zosyn, Levaquin, and Zyvox therapy. We will follow blood cultures and sputum cultures. As above, vasopressors have been titrated off. We will continue intravenous fluids. 2. Acute hypoxemic respiratory failure. We will continue treatment as for underlying pneumonia and septic shock as above. We will continue oxygen per protocol. 3. Atrial fibrillation. Patient is rate controlled. He is anticoagulated. For now, we will continue. 4. Chronic kidney disease. Patient's baseline creatinine is approximately 1.5. Creatinine today is 1.6. We will follow this. 5. Hyperbilirubinemia. I suspect this is reactive. We will remain aware. 6. Disposition. At this point, patient continues to require jail care in a hospital setting. We will plan discharge home once appropriate. cc: Rodney Barriga MD
[2018-07-24] MEDS: LEVAQUIN 250 MG/D5W 250 MG/50 ML IVPB IV SCH (01:25)
[2018-07-24] MEDS: TYLENOL PO PRN (01:58)
[2018-07-24] MEDS: ZOSYN 3.375 GM in NS 50 ML IV SCH ×4 (02:21→20:04)
[2018-07-24] MEDS: ZYVOX 600 MG/D5W 600 MG/300 ML IVPB IV SCH ×2 (02:21→15:13)
[2018-07-24] MEDS: ATROVENT NEB INH SCH ×6 (03:32→23:35)
[2018-07-24] MEDS: XOPENEX NEB INH SCH ×6 (03:33→23:35)
[2018-07-24 05:13] LABS: BASO# 0.01 X1000 (0.0-0.2); BASO% 0.1 % (0.0-0.8); EOS# 0.01 X1000 (0.0-0.7); EOS% 0.1 % (0.0-10.0); HEMATOCRIT 35.5 % (42.0-52.0); HEMOGLOBIN 11.9 g/dL (14.0-18.0); IMM GRAN# 0.08 X1000 (0.0-0.04); IMM GRAN% 0.6 % (0.0-0.5); LYMPH# 0.46 X1000 (1.2-3.4); LYMPH% 3.7 % (20.5-51.1); MCH 28.5 PG (27-31); MCHC 33.5 g/dL (33-37); MCV 85.1 FL (81-99); MONO# 0.31 X1000 (0.11-0.59); MONO% 2.5 % (1.7-9.3); MPV 10.6 FL (7.4-10.4); PLT 143 X1000 (130-400); RBC 4.17 XMIL (4.7-6.1); RDW 15.9 % (11.5-14.5); WBC 12.47 X1000 (4.8-10.8)
[2018-07-24 05:15] LABS: INR 1.34; PROTIME 17.6 Seconds (11.0-16.0)
[2018-07-24 05:21] LABS: ALBUMIN 2.6 g/dL (3.5-5.0); CALCIUM 8.1 mg/dL (8.8-10.2); CREATININE 1.5 mg/dL (0.7-1.2); MAGNESIUM 1.7 mg/dL (1.5-2.7); PHOSPHORUS 2.2 mg/dL (2.7-4.5); POTASSIUM 3.4 mmol/L (3.5-5.1); TOTAL BILIRUBIN 1.28 mg/dL (0.20-1.00); TOTAL PROTEIN 5.3 g/dL (6.3-8.3)
[2018-07-24 05:43] LABS: LYMPHS 3 % (21-51); MONO 2 % (1-9); SEGS 95 % (42-75)
[2018-07-24] MEDS: NS 1,000 ML IV SCH ×2 (06:15→09:08)
--- NOTE | 2018-07-24 06:41 | Diag Imaging Result Doc PS360 ---
CHEST-PORTABLE - 07/24/2018 INDICATION: abnormal exam COMPARISON: 07/23/2018 FINDINGS: There has been some improvement in the right basilar alveolar infiltrate. Heart size remains normal. No pneumothorax or significant pleural effusion. IMPRESSION: Improvement in the right basilar infiltrate. Electronically signed by Smith Salazar 07/24/2018 6:39 AM
[2018-07-24] MEDS: PRILOSEC PO SCH (08:08)
[2018-07-24] MEDS: ASPIRIN PO SCH (08:08)
[2018-07-24] MEDS: TOPROL XL PO SCH (08:59)
[2018-07-24] MEDS: PATIENT'S OWN MED PO SCH (12:22)
--- NOTE | 2018-07-24 13:46 | PULMONOLOGY PROGRESS NOTE ---
DATE: 07/24/2018 SUBJECTIVE: The patient is awake, alert, and conversant. His appetite has improved. He reports his cough is clearing. OBJECTIVE: Vital Signs: Maximum temperature in the last 24 hours 100.0 degrees, current temperature 97.5 degrees. HEENT: Pupils are equal and reactive. Oropharynx is clear. Neck: Supple. Chest: Reveals crackles at the right base. No wheezing. No rhonchi. No E to A changes. Cardiac: S1-S2. Abdomen: Soft with good bowel sounds. Extremities: Reveal trace peripheral edema. LABORATORIES: Chest x-ray reveals decreased infiltrate at the right base. Sputum culture reveals normal lalita. Blood cultures are pending. White blood count 12.47, hemoglobin 11.9, platelet count 143,000. IMPRESSION: An 83-year-old with: 1. Community-acquired pneumonia. 2. Chronic obstructive pulmonary disease/asthma. 3. Hemoptysis on anticoagulation. 4. Resolving shock. RECOMMENDATIONS: 1. Continue current antibiotic regimen. 2. Continue bronchodilators. 3. Hold Xarelto today with anticipation of restarting tomorrow. 4. Agree with transfer to the floor. 5. Recommend moving patient out of the bed and into the chair. cc: MD Rodney Burgos MD
[2018-07-24] MEDS ORDERED: NS 1,000 ML IV SCH (21:00)
--- NOTE | 2018-07-24 21:17 | PROGRESS NOTE ---
DATE: 07/24/2018 SUBJECTIVE: This morning, upon my arrival, patient stated he was feeling much improved from yesterday. The patient's blood pressure had responded nicely to IV fluids. He no longer required pressor support. His energy level was low, but improving. The patient was transferred from the intensive care unit to the CICU. Through the day, patient states he did reasonably well. The patient was able to stand without assistance. His shortness of breath has improved. He no longer requires oxygen supplementation. He denies fevers, chills, nausea, vomiting, or chest discomfort. This evening, patient was resting in bed. He stated he feels reasonably well. OBJECTIVE: Vital Signs: T-max 98.1 degrees, heart rate 82 to 106, respirations 17 to 22, blood pressure 94 to 132 over 64 to 77. General: Well nourished, well developed, in no acute distress. Cardiovascular: Irregularly irregular. No significant murmurs, rubs, or gallops. Pulmonary: Crackles at the right base, improved from yesterday. Abdomen: Soft, nontender, and nondistended. Positive bowel sounds. Extremities: Moves all extremities well. No significant clubbing or cyanosis. 2+ lower extremity edema bilaterally. Dermatologic: Evaluation reveals no evidence of rash. LABORATORY DATA: White blood cell count 12.47, hemoglobin 11.9, hematocrit 35.5, platelet count is 143,000. PT is 17.6. INR is 1.34. Sodium 132, potassium 3.4, chloride 95, bicarb 24, BUN 27, creatinine 1.5, glucose 128, calcium 8.1, magnesium 1.7, phosphorus 2.2, total bilirubin 1.28, total protein 5.3, albumin 2.6, alkaline phosphatase 73, AST 20, ALT 20. ASSESSMENT AND PLAN: 1. Right lower lobe pneumonia with associated septic shock. Sputum cultures have returned with normal lalita. Blood cultures have returned negative thus far. For now, we will continue Zosyn, levofloxacin, and Zyvox therapy. We will continue bronchodilators. We will follow patient's clinical course. Clinically, patient has achieved improvement. 2. Acute hypoxemic respiratory failure: The patient is being treated for underlying pneumonia as above. He is on oxygen per protocol. This evening, oxygen has been removed. 3. Atrial fibrillation. The patient is rate controlled. Anticoagulation will be held for 24 hours secondary to hemoptysis. We will follow this. 4. Chronic kidney disease. The patient's creatinine is at baseline. We will begin slow intravenous fluids today. 5. Hyperbilirubinemia. This likely is reactive. We will remain aware. 6. Benign prostatic hypertrophy. Cialis has been resumed. 7. Disposition. At this point, the patient continues to require retirement care in a hospital setting. We will plan discharge home once appropriate. cc: Rodney Barriga MD
[2018-07-25] MEDS: LEVAQUIN 250 MG/D5W 250 MG/50 ML IVPB IV SCH (01:04)
[2018-07-25] MEDS: ZOSYN 3.375 GM in NS 50 ML IV SCH ×4 (02:18→19:59)
[2018-07-25] MEDS: ZYVOX 600 MG/D5W 600 MG/300 ML IVPB IV SCH ×2 (03:08→15:01)
[2018-07-25] MEDS: ATROVENT NEB INH SCH ×5 (03:35→19:30)
[2018-07-25] MEDS: XOPENEX NEB INH SCH ×5 (03:35→19:30)
[2018-07-25 05:35] LABS: CREATININE 1.3 mg/dL (0.7-1.2); POTASSIUM 3.5 mmol/L (3.5-5.1)
[2018-07-25 06:20] LABS: BASO# 0.02 X1000 (0.0-0.2); BASO% 0.2 % (0.0-0.8); EOS# 0.06 X1000 (0.0-0.7); EOS% 0.5 % (0.0-10.0); HEMATOCRIT 35.1 % (42.0-52.0); HEMOGLOBIN 11.6 g/dL (14.0-18.0); IMM GRAN# 0.03 X1000 (0.0-0.04); IMM GRAN% 0.3 % (0.0-0.5); LYMPH% 4.6 % (20.5-51.1); MCH 28.4 PG (27-31); MCV 85.8 FL (81-99); MONO# 0.57 X1000 (0.11-0.59); MONO% 5.2 % (1.7-9.3); NEUT# 9.78 X1000 (1.4-6.5); NEUT% 89.2 % (42.2-75.2); PLT 165 X1000 (130-400); RBC 4.09 XMIL (4.7-6.1); WBC 10.96 X1000 (4.8-10.8)
[2018-07-25 07:20] LABS: BANDS 6 % (0-1); LYMPHS 2 % (21-51); SEGS 92 % (42-75)
[2018-07-25] MEDS: ASPIRIN EC PO SCH ×2 (08:10→19:59)
[2018-07-25] MEDS: PRILOSEC PO SCH (08:10)
[2018-07-25] MEDS: TOPROL XL PO SCH (08:10)
[2018-07-25] MEDS: PATIENT'S OWN MED PO SCH (08:13)
[2018-07-25] MEDS: XARELTO PO SCH (16:47)
--- NOTE | 2018-07-25 17:55 | PROGRESS NOTE ---
DATE: 07/25/2018 SUBJECTIVE: Upon my arrival this morning, patient was resting in bed. Patient states, overall, he had a good night. Through the day today, patient states he has demonstrated continued improvement. The patient has walked with physical therapy. He has been up in a chair. This evening, he is back in bed, but states he was active through the day. He denies fevers, chills, nausea, vomiting, significant shortness of breath, or chest discomfort. He does continue to have an intermittent cough productive of blood-0tinged sputum. OBJECTIVE: T-max 99.8 degrees, heart rate [*]to 92, respirations 16-20, blood pressure 100 to 129 over 68 to 73.General: Well nourished, well developed, no acute distress. Cardiovascular: Irregularly irregular. No significant murmurs, rubs, or gallops. Pulmonary: Crackles at the right base, improving. Adequate air movement. Abdomen: Soft, nontender, nondistended. Positive bowel sounds. Extremities: Moves all extremities well. No significant clubbing or cyanosis, 1 to 2+ lower extremity edema bilaterally. Dermatologic: Evaluation reveals no evidence of rash. LABORATORY DATA: White blood cell count 10.96, hemoglobin 11.6, hematocrit 35.1, platelet count 165,000. Sodium 132, potassium 3.5, chloride 97, bicarbonate 25, BUN 20, creatinine 1.3, glucose 128, calcium 8.0. ASSESSMENT AND PLAN: 1. Right lower lobe pneumonia with associated septic shock. Sputum culture returned with normal lalita. Blood cultures have returned negative. For now, we will continue his current antibiotic regimen as he is demonstrating improvement. IV fluids were discontinued yesterday secondary to mild volume overload state. We will continue incentive spirometry, aspiration precautions, and bronchodilators. 2. Hypoxemic respiratory failure. The patient has titrated off of oxygen per protocol. We will continue treatment of pneumonia as described above. 3. Atrial fibrillation. Patient is rate controlled. Anticoagulation will be resumed this evening. We will remain aware that he does have a history of hypercoagulable state. 4. Chronic kidney disease. Patient's creatinine has returned to baseline. We will follow this closely. 5. Hyperbilirubinemia. This has resolved. This likely was reactive. 6. Benign prostatic hypertrophy. His symptoms are stable with Cialis therapy. 7. Lower extremity edema. Blood pressure remains borderline. At this point, we will hold off on Lasix intervention. We will plan to resume this once his blood pressure will tolerate. DISPOSITION: At this point, patient continues to require half-way care in a hospital setting. We will plan discharge home once appropriate. cc: Rodney Barriga MD
--- NOTE | 2018-07-25 20:36 | PULMONOLOGY PROGRESS NOTE ---
DATE: 07/25/2018 SUBJECTIVE: The patient is awake, alert, and conversant. He is producing occasional blood tinged purulent sputum. He is feeling significantly better. Appetite has improved. OBJECTIVE: Vital Signs: Maximum temperature in the last 24 hours was 99.8 degrees. HEENT: Pupils are equal and reactive. Oropharynx is clear. Neck: Supple. Chest: Crackles at the right base. Cardiac: S1, S2. Abdomen: Soft. Extremities: Trace to 1+ peripheral edema. LABORATORIES: Immunoglobulin level is low normal at 713. Sodium 132, potassium 3.5, chloride 97, bicarbonate 25, BUN 20, creatinine 1.3. Sputum cultures are negative to date. IMPRESSION: An 83-year-old with: 1. Community-acquired pneumonia. 2. Septic shock, which has resolved. 3. Acute hypoxemic respiratory failure, with continued improvement. 4. Atrial fibrillation. 5. Acute renal insufficiency, with continued improvement. RECOMMENDATIONS: 1. Continue current antibiotic regimen. 2. Continue bronchodilators. 3. Restart Xarelto today. 4. Follow up chest x-ray tomorrow morning. cc: MD Rodney Burgos MD
[2018-07-26] MEDS: XOPENEX NEB INH SCH ×7 (00:11→23:29)
[2018-07-26] MEDS: ATROVENT NEB INH SCH ×7 (00:11→23:29)
[2018-07-26] MEDS: LEVAQUIN 250 MG/D5W 250 MG/50 ML IVPB IV SCH (01:21)
[2018-07-26] MEDS: ZYVOX 600 MG/D5W 600 MG/300 ML IVPB IV SCH ×2 (02:11→14:05)
[2018-07-26] MEDS: ZOSYN 3.375 GM in NS 50 ML IV SCH ×4 (02:11→20:04)
[2018-07-26 05:53] LABS: BASO# 0.01 X1000 (0.0-0.2); BASO% 0.1 % (0.0-0.8); EOS# 0.19 X1000 (0.0-0.7); EOS% 2.4 % (0.0-10.0); HEMOGLOBIN 11.5 g/dL (14.0-18.0); IMM GRAN# 0.05 X1000 (0.0-0.04); IMM GRAN% 0.6 % (0.0-0.5); LYMPH# 0.55 X1000 (1.2-3.4); LYMPH% 7.1 % (20.5-51.1); MCH 28.3 PG (27-31); MCHC 32.9 g/dL (33-37); MCV 86.2 FL (81-99); MPV 10.6 FL (7.4-10.4); NEUT# 6.27 X1000 (1.4-6.5); NEUT% 80.8 % (42.2-75.2); PLT 159 X1000 (130-400); RBC 4.06 XMIL (4.7-6.1); WBC 7.77 X1000 (4.8-10.8)
[2018-07-26 06:12] LABS: AGAP 11; BUN 17 mg/dL (8-22); CALCIUM 8.3 mg/dL (8.8-10.2); CHLORIDE 98 mmol/L (98-107); COSMO 273; CREATININE 1.1 mg/dL (0.7-1.2); ESTIMATED GFR > 60; GLUCOSE 116 mg/dL (70-104); POTASSIUM 3.6 mmol/L (3.5-5.1); SODIUM 135 mmol/L (136-145); TCO2 26 mmol/L (25-35)
--- NOTE | 2018-07-26 08:03 | Diag Imaging Result Doc PS360 ---
EXAM: CHEST-2 VIEWS 07/26/2018 HISTORY: pneumonia TECHNIQUE: PA and lateral chest COMMENT: There is alveolar opacity in the right lower lobe. There is apparently less volume loss in the right middle lobe than on 07/24/2018. There is also atelectasis or pneumonia in the left lower lobe. This is worse than on the previous study. There is a right pleural effusion. IMPRESSION: Bronchopneumonia with right pleural effusion. Electronically signed by Anirudh Vargas 07/26/2018 8:01 AM
[2018-07-26] MEDS: PRILOSEC PO SCH (09:11)
[2018-07-26] MEDS: ASPIRIN EC PO SCH ×2 (09:11→20:04)
[2018-07-26] MEDS: TOPROL XL PO SCH (09:11)
[2018-07-26] MEDS: PATIENT'S OWN MED PO SCH (09:47)
[2018-07-26] MEDS ORDERED: LASIX PO ONE (13:35)
[2018-07-26] MEDS: XARELTO PO SCH (17:54)
--- NOTE | 2018-07-26 19:53 | PULMONOLOGY PROGRESS NOTE ---
DATE: 07/26/2018 SUBJECTIVE: The patient reports he woke up this morning short of breath with some frothy, pink sputum. He has received some Lasix and has undergone significant diuresis. He feels significantly better this afternoon and did shower. OBJECTIVE: The patient has been afebrile for the last 24 hours. Blood pressure 125/77, heart rate 87, respiration rate 18, oxygen saturation 96% on room air. HEENT: Pupils are equal and reactive. Oropharynx is clear. Neck is supple. Chest reveals good air entry bilaterally, with minimal crackles in the lung bases. Cardiac exam: S1, S2. Abdomen is soft. Extremities reveal trace edema. DIAGNOSTIC DATA: Chest x-ray reveals mild improvement at the right base, but he has developed some changes at the left base and a small effusion. IMPRESSION: An 83-year-old with: 1. Community-acquired pneumonia. 2. Septic shock. 3. Acute renal failure, which has resolved. 4. Mild fluid overload. DISCUSSION: An 83-year-old with problems outlined above. Overall he appears to be improving. He did have some increased shortness of breath this morning, likely due to mobilization of previous resuscitation efforts. He is doing well this afternoon. RECOMMENDATIONS: 1. Continue current antibiotics. 2. Increase Levaquin dosing tomorrow morning, which can be used as a discharge medication if okay with Dr. Barriga. 3. One additional follow-up chest x-ray tomorrow. cc: MD Rodney Burgos MD
--- NOTE | 2018-07-26 22:13 | PROGRESS NOTE ---
DATE: 07/26/2018 SUBJECTIVE: Upon my arrival this morning, the patient had noted an acute episode of shortness of breath. He stated this occurred approximately 2 hours prior to my arrival. This proved to be self-limiting. Through the day today, the patient did very well. With stabilization of blood pressure, a dose of Lasix was provided. With this, the patient states he diuresed well. This evening, the patient states he feels much better. He denies fevers, chills, nausea, vomiting, shortness of breath, or chest discomfort. He says his energy level is slowly improving. OBJECTIVE: Vital signs: T-max 98.6 degrees, heart rate 75 to 102, respirations 17 to 20, blood pressure 102-144/64-80. General: Well nourished, well developed, no acute distress. Cardiovascular: Regular rate and rhythm. No significant murmurs, rubs, or gallops. Pulmonary: Crackles at the right base. Adequate air movement. Abdomen: Soft, nontender, nondistended. Positive bowel sounds. Extremities: Moves all extremities well. No significant clubbing or cyanosis. There is 1 to 2+ lower extremity edema bilaterally. Dermatologic: No evidence of rash. LABORATORY DATA: White blood cell count 7.77, hemoglobin 11.5, hematocrit 35.0, platelet count 159,000. Sodium 135, potassium 3.6, chloride 98, bicarb 26, BUN 17, creatinine 1.1, glucose 116, calcium 8.3. ASSESSMENT AND PLAN: 1. Right lower lobe pneumonia with associated septic shock. -- Sputum culture returned with normal lalita. Blood cultures returned negative. The patient's condition continues to slowly improve. We will continue current antibiotic coverage and bronchodilators. We will continue to encourage incentive spirometry and aspiration precautions. 2. Hypoxemic respiratory failure. -- While hospitalized, the patient has been titrated off oxygen therapy. At present time, his oxygen saturation is acceptable on room air. 3. Volume overload with small pleural effusions. This likely is a consequence of volume resuscitation upon admission. The patient was just diuresed this afternoon. The patient does note significant improvement in his clinical condition. We will follow this. 4. Atrial fibrillation. -- The patient is rate controlled and anticoagulated. We will remain aware. 5. Chronic kidney disease. -- The patient's creatinine today is improved above his baseline. We will follow this with diuresis. 6. Benign prostatic hypertrophy. -- We will continue the patient on Cialis therapy. Symptoms are controlled. 7. Disposition. -- At this point, the patient continues to require [facility] care in a hospital setting. We will plan discharge home once appropriate. cc: Rodney Barriga MD
[2018-07-27] MEDS: LEVAQUIN 250 MG/D5W 250 MG/50 ML IVPB IV SCH (01:12)
[2018-07-27] MEDS: ZOSYN 3.375 GM in NS 50 ML IV SCH ×2 (02:26→08:38)
[2018-07-27] MEDS: ZYVOX 600 MG/D5W 600 MG/300 ML IVPB IV SCH (02:26)
[2018-07-27] MEDS: ATROVENT NEB INH SCH ×3 (03:38→11:45)
[2018-07-27] MEDS: XOPENEX NEB INH SCH ×3 (03:38→11:45)
[2018-07-27 05:35] LABS: BASO# 0.02 X1000 (0.0-0.2); BASO% 0.3 % (0.0-0.8); EOS# 0.17 X1000 (0.0-0.7); EOS% 2.8 % (0.0-10.0); HEMATOCRIT 36.9 % (42.0-52.0); IMM GRAN# 0.06 X1000 (0.0-0.04); LYMPH# 0.81 X1000 (1.2-3.4); LYMPH% 13.1 % (20.5-51.1); MCH 28.2 PG (27-31); MCHC 32.5 g/dL (33-37); MCV 86.8 FL (81-99); MONO# 0.54 X1000 (0.11-0.59); MONO% 8.8 % (1.7-9.3); MPV 10.5 FL (7.4-10.4); NEUT# 4.57 X1000 (1.4-6.5); PLT 168 X1000 (130-400); RBC 4.25 XMIL (4.7-6.1); WBC 6.17 X1000 (4.8-10.8)
[2018-07-27 06:03] LABS: ALB/GLOB RATIO 0.7; ALBUMIN 2.4 g/dL (3.5-5.0); CALCIUM 8.5 mg/dL (8.8-10.2); CREATININE 1.2 mg/dL (0.7-1.2); POTASSIUM 3.4 mmol/L (3.5-5.1); TOTAL BILIRUBIN 0.98 mg/dL (0.20-1.00); TOTAL PROTEIN 5.8 g/dL (6.3-8.3)
[2018-07-27] MEDS ORDERED: KLOR-CON PO ONE (07:54)
[2018-07-27 08:04] VITALS: BP 97/65
[2018-07-27] MEDS: PRILOSEC PO SCH (08:38)
[2018-07-27] MEDS: TOPROL XL PO SCH (08:38)
[2018-07-27] MEDS: ASPIRIN EC PO SCH (08:38)
[2018-07-27] MEDS: PATIENT'S OWN MED PO SCH (08:39)
--- NOTE | 2018-07-27 10:25 | Diag Imaging Result Doc PS360 ---
EXAM: CHEST-2 VIEWS 07/27/2018 HISTORY: abnormal exam TECHNIQUE: PA and lateral chest COMMENT: There is increased blunting of the right costophrenic angle compared to 07/26/2018. There is also apparent fluid in the left costophrenic sulcus. There is minimal opacity in the left base and more so in the right lower lobe. The density of the opacity in the right lower lobe has improved slightly since the previous examination. The heart size is not enlarged. Central pulmonary vascularity is prominent. IMPRESSION: Improved right lower lobe pneumonia. Worsened bilateral pleural effusions. Electronically signed by Anirudh Vargas 07/27/2018 10:23 AM
--- NOTE | 2018-07-27 17:46 | PULMONOLOGY PROGRESS NOTE ---
DATE: 07/27/2018 SUBJECTIVE: The patient is awake, alert, and conversant. He reports he is doing well. He denies shortness of breath. Denies sputum. OBJECTIVE: Blood pressure 97/65, heart rate 97, respiratory rate 15, oxygen saturation 95% on room air.HEENT: Pupils are equal and reactive. Oropharynx is clear. Neck: Supple. Chest: Reveals good air entry bilaterally with crackles in the lung bases. Cardiac Exam: S1, S2. Abdomen: Soft. Extremities: Reveal decreased edema. LABORATORIES: Chest x-ray reveals decreasing infiltrates and effusions. IMPRESSION: An 83-year-old with community-acquired pneumonia. Pneumonia is improving. The patient does have small effusions, likely related to mobilization of fluid associated with resuscitation. Clinically, he is doing well. RECOMMENDATIONS: 1. I agree with plans for discharge today. 2. Agree with antibiotics at the time of discharge. 3. Available for follow-up if Dr. Barriga feels it is necessary. cc: MD Rodney Burgos MD
--- NOTE | 2018-07-28 09:16 | DISCHARGE SUMMARY ---
ADMISSION DATE: 07/23/2018 DISCHARGE DATE: 07/27/2018 ADMISSION DIAGNOSES: 1. Epistaxis 2. Shortness of breath. DISCHARGE DIAGNOSES: 1. Right lower lobe pneumonia with associated septic shock. 2. Hypoxemic respiratory failure, improved. 3. Volume overload with small pleural effusions, improving. 4. Atrial fibrillation, present on arrival. 5. Chronic kidney disease, present on arrival. 6. Benign prostatic hypertrophy, present on arrival. CONSULTATIONS: Dr. Aguilar with Pulmonary Medicine was consulted for further evaluation and management of pneumonia. PROCEDURES: 1. A CT scan of the abdomen and pelvis was performed on 07/27/2018 which revealed right lower lobe pneumonia. Right nephrolithiasis. 2. Multiple chest x-rays were performed, last on 07/27/2018, which revealed improved right lower lobe pneumonia. Worsened bilateral pleural effusions. HISTORY AND PHYSICAL EXAMINATION: See admit note. PHYSICAL EXAMINATION PRIOR TO DISCHARGE: Vital Signs: Temperature 98.8 degrees, heart rate 97, respirations 15 blood pressure is 97/65. General: Well nourished, well developed, no acute distress. Cardiovascular: Irregularly irregular. No significant murmurs, rubs, or gallops. Pulmonary: Minimal crackles at bilateral bases. Adequate air movement. Abdomen: Soft, nontender, nondistended. Positive bowel sounds. Extremities: Moves all extremities well. No significant clubbing, cyanosis, 1 to 2+ lower extremity edema bilaterally. Dermatologic: Evaluation reveals no evidence of rash. LABORATORY DATA: White blood cell count 6.17, hemoglobin 12.0, hematocrit 36.9, platelet count 168,000. Sodium 134, potassium 3.4, chloride 98, bicarb 24, BUN 15, creatinine 1.2, glucose 202, calcium 8.5, magnesium 2.0. Total bilirubin 0.98, total protein 5.8, albumin 2.4, alkaline phosphatase 255, AST 37, ALT 37. HOSPITAL COURSE: Patient was admitted as per history and physical examination. Hospital course per condition is as follows. 1. Right lower lobe pneumonia with associated septic shock-upon admission, patient was noted to be hypotensive. Full evaluation revealed a right lower lobe pneumonia. Blood cultures and sputum cultures were drawn. These were monitored while hospitalized and returned without pathologic growth. The patient was immediately placed on broad-spectrum antibiotics upon admission. IV fluids were provided. Levophed also was provided initially. With hydration and antibiotic intervention, patient's blood pressure stabilized. By day 2 of hospitalization, patient was weaned off of Levophed therapy. By day 3, his normal saline was discontinued. Throughout the remainder of hospitalization, patient was treated with IV antibiotics. His blood pressure remained stable. The patient will be discharged home with one additional week of Levaquin therapy. We will continue incentive spirometry and aspiration precautions. 2. Hypoxemic respiratory failure-this likely was a consequence of his underlying pneumonia. Throughout hospitalization, patient was treated with oxygen per protocol. At time of discharge, his oxygen saturations were acceptable on room air. This will be followed as well. 3. Volume overload with pleural effusions - This likely was a consequence of volume resuscitation in the setting of sepsis. The patient was slowly diuresed while hospitalized. We will continue this as an outpatient with oral Lasix. This too will be followed closely. 4. Atrial fibrillation-patient has longstanding disease. He remained rate controlled and anticoagulated. We will follow this as an outpatient. 5. Chronic kidney disease-patient's creatinine improved to baseline with hydration. Once again, this will be followed as an outpatient. 6. Benign prostatic hypertrophy-patient was continued on Cialis therapy. 7. Hemoptysis. This likely was a consequence of his pneumonia. We will plan to repeat a CT scan of the chest as an outpatient. DISCHARGE CONDITION: Good. DISPOSITION: Discharge to home. MEDICATIONS: 1. Metoprolol ER 25 mg daily. 2. Breo 200/25 1 inhalation daily. 3. Levofloxacin 500 mg daily for 7 days. 4. ProAir HFA 1 to 2 puffs every 4- 6 hours as needed. 5. Mucinex DM twice daily as needed. 6. Cialis 5 mg daily. 7. Aspirin 81 mg twice daily. 8. Acetaminophen 650 mg every 4 hours as needed. 9. Lasix 40 mg daily. 10. Xarelto with supper. FOLLOWUP: Patient is to follow with me in approximately 1 to 2 weeks. cc: Rodney Barriga MD
== END 2018-07-27 12:25 | disposition home or self-care (01) | DRG 871 ==
LOC: ED 19:39 → ICU 07-23 01:18 → SUATTDRO 07-23 01:18 → 3S 07-24 15:32
PROVIDERS: ADMIT Internal Medicine; ATTEND Internal Medicine
CPT/HCPCS: 71010; 71020; 71045; 71046; 74176; 80048; 80053; 81001; 82270; 82784; 83036; 83605; 83735; 84100; 84443; 84484; 85025; 85610; 85730; 86850; 86900; 86901; 87040; 87070; 87088; 87205; 94640; 94761; 94799; 96361; 96365; 96366; 96368; 96375; 97110; 97162; 97530; 99285; A9270; C9113; J1956; J2020; J2543; J7030; J7070; S0164